=== PATIENT | male | born 1955 | race African-American/Black ===

== ENCOUNTER 2018-07-17 03:06 | Observation (INO) ==
[2018-07-17] MEDS ORDERED: Aspirin 325 MG TABLET PO ONE (03:15)
--- NOTE | 2018-07-17 03:20 | Emergency Department Note ---
Disposition Clinical Impression: Epigastric pain, Chest pain, Abnormal EKG, Elevated LFTs, Chronic alcohol abuse, Hypokalemia, Total bilirubin, elevated Disposition: Admitted As Inpatient Condition: Good Time of Disposition: 05:00 Abdominal Pain HPI - General Chief Complaint: ED Chest Pain Stated Complaint: chest pain Time Seen by Provider: 07/17/18 03:10 Source: patient, EMS Mode of arrival: EMS Limitations: no limitations Nursing Notes Reviewed: Yes Vital Signs Reviewed: Yes - History of Present Illness HPI Narrative: Patient is a 62-year-old male with past medical history of hepatitis C. He presents today via EMS due to concern for what he describes as chest pain. States that it woke him up out of sleep. He points to his epigastric area when he is talking about his chest pain. States that it feels a squeezing/sharp sensation. Woke him up around 1:30 or 2 AM, approximately one hour ago. Rates it at 10 out of 10. Denies any worsening with exertion, denies any other nausea, vomiting, sweating, fevers, diarrhea, any other lower abdominal pain. Denies any history of pancreatitis. He does admit to drinking alcohol daily, drinks a pint of liquor a day. Denies any previous cardiac history such as HI or stent. Did not take any aspirin or nitroglycerin prior to arrival. EMS stated that they tried to give the patient aspirin but he declined it due to concern for history of hepatitis C and he states that he thought he was not allowed to take it. Denies any history of any varices or any GI bleeding. Pain Scale: 8 - Related Data Home Medications Medication Instructions Recorded Confirmed RX: Lisinopril [Zestril] 10 mg PO DAILY 05/22/16 05/22/16 Allergies Allergy/AdvReac Type Severity Reaction Status Date / Time No Known Allergies Allergy Verified 05/22/16 11:30 All systems ED: reviewed and negative except as stated. Constitutional: Denies: fever Cardiovascular: Reports: chest pain Respiratory: Denies: cough, dyspnea, sputum production Gastrointestinal: Reports: abdominal pain. Denies: nausea, vomiting, diarrhea, constipation Abdominal Pain PMH - Past Medical History Medical history: Reports: cancer, hepatitis Psychiatric history: Reports: no psych history - Social History Smoking status: Current every day smoker Alcohol use: Reports: heavy Drug use: Reports: none Physical Exam - General Limitations: no limitations General appearance: alert, in no apparent distress - Head Head exam: atraumatic, normocephalic, normal inspection - Eye Eye exam: Present: normal appearance, PERRL, EOMI - ENT ENT exam: normal exam, normal oropharynx, mucous membranes moist - Neck Neck exam: Present: normal inspection, full ROM, trachea midline - Chest Chest inspection: Present: normal inspection, symmetric chest wall rise - Respiratory Respiratory exam: Present: normal lung sounds bilaterally - Cardiovascular Cardiovascular exam: Present: regular rate, normal rhythm, normal heart sounds - Abdominal Exam Abdominal exam: Present: tenderness (epigastric - moderate, reproduces patient's subjective pain). Absent: distention, guarding, rebound, rigidity, Elmore's sign, Rovsing's sign, tenderness at McBurney's Point - Extremities Exam Extremities exam: Present: normal inspection, full ROM. Absent: tenderness, pedal edema - Neurological Exam Neurological exam: Present: alert, oriented X3 - Psychiatric Psychiatric exam: Present: normal affect, normal mood - Skin Skin exam: Present: warm, dry, intact, normal color Course Course Narrative: Patient mildly hypertensive on presentation. Otherwise, the rest of the vitals within normal limits. Physical exam showed epigastric tenderness that reproduced the patient's subjective pain. He had no reproducible tenderness on chest exam, no rashes. Lungs were clear to auscultation, heart regular rate and rhythm. Due to alcohol history, there is more concerned for pancreatitis at this time. We will also consider ACS. We will obtain EKG, chest x-ray, basic blood work, troponin level, LFTs, lipase. Patient will be given medication for pain control and will be given aspirin. 04:18 chest x-ray negative for any acute cardio pulmonary process. Basic labs show mild hypokalemia. This was treated with oral potassium in the ED. Elevation in AST and inhaled T, mild which would be consistent with patient's chronic alcohol abuse. He also has a total bilirubin and direct bilirubin that are elevated. Patient was reevaluated and has no epigastric pain or right upper quadrant pain on repeat examination. Lipase is mildly elevated but does not meet criteria for acute pancreatitis. EKG was obtained and shows diffuse T wave inversions. There is no old EKG for comparison. Patient's pain appears to be controlled after aspirin and fentanyl. However, there is concern that this could still be ACS in nature as he has diffuse T-wave inversions. Currently concern for early pancreatitis, possible biliary colic, possible ACS. We will admit the patient for trending troponins and observation. Patient may require right upper quadrant ultrasound if he has return of pain for further assessment of elevated bilirubin level. Chest X-Ray 07/17/18 03:15 IMPRESSION: No acute process. D/ / Chase Wilson MD / Chase Wilson MD Interpreting Provider: Chase Wilson MD Vital Signs Temperature 97.7 F 07/17/18 03:09 Pulse Rate 57 07/17/18 03:09 Respiratory Rate 18 07/17/18 03:09 Blood Pressure 157/81 07/17/18 03:09 O2 Sat by Pulse Oximetry 99 07/17/18 03:09 Temperature 97.7 F 07/17/18 03:09 Pulse Rate 57 07/17/18 03:09 Respiratory Rate 18 07/17/18 03:09 Blood Pressure 157/81 07/17/18 03:09 O2 Sat by Pulse Oximetry 99 07/17/18 03:09 Oxygen Delivery Oxygen Delivery Room Air Abdominal Pain - MDM Narrative Medical decision making narrative: Patient mildly hypertensive on presentation. Otherwise, the rest of the vitals within normal limits. Physical exam showed epigastric tenderness that reproduced the patient's subjective pain. He had no reproducible tenderness on chest exam, no rashes. Lungs were clear to auscultation, heart regular rate and rhythm. Due to alcohol history, there is more concerned for pancreatitis at this time. We will also consider ACS. We will obtain EKG, chest x-ray, basic blood work, troponin level, LFTs, lipase. Patient will be given medication for pain control and will be given aspirin. 04:18 chest x-ray negative for any acute cardio pulmonary process. Basic labs show mild hypokalemia. This was treated with oral potassium in the ED. Elevation in AST and inhaled T, mild which would be consistent with patient's chronic alcohol abuse. He also has a total bilirubin and direct bilirubin that are elevated. Patient was reevaluated and has no epigastric pain or right upper quadrant pain on repeat examination. Lipase is mildly elevated but does not meet criteria for acute pancreatitis. EKG was obtained and shows diffuse T wave inversions. There is no old EKG for comparison. Patient's pain appears to be controlled after aspirin and fentanyl. However, there is concern that this could still be ACS in nature as he has diffuse T-wave inversions. Currently concern for early pancreatitis, possible biliary colic, possible ACS. We will admit the patient for trending troponins and observation. Patient may require right upper quadrant ultrasound if he has return of pain for further assessment of elevated bilirubin level. - Medical Records Medical records reviewed: Yes I reviewed the patient's medical records. - Lab Data Lab results reviewed: Yes I reviewed the patient's lab results. Result diagrams: 07/17/18 03:20 07/17/18 03:20 Lab Results 07/17/18 07/17/18 07/17/18 Range/Units 03:20 03:20 03:20 WBC 7.5 (4.3-11.1) K/mcL RBC 4.13 L (4.19-5.50) M/mcL Hgb 14.4 (12.9-16.9) g/dL Hct 41.7 (37.5-50.1) % MCV 101.0 H (83.0-100.0) fL MCH 34.9 H (28.0-33.3) pg MCHC 34.5 (31.6-35.5) g/dL RDW 12.1 (11.5-14.5) % Plt Count 146 (140-400) K/mcL MPV 10.2 (9.4-12.4) fL Immature Gran % 0.3 (0-4) % Seg Neutrophils % 64.9 % Lymphocytes % 22.5 % Monocytes % 10.4 % Eosinophils % 1.5 % Basophils % 0.4 % Neutrophils # 4.9 (1.6-8.9) K/mcL Lymphocytes # 1.7 (0.6-4.6) K/mcL Monocytes # 0.8 (0.0-1.3) K/mcL Eosinophils # 0.1 (0.0-0.6) K/mcL Basophils # 0.0 (0.0-0.2) K/mcL Sodium 139 (136-145) mEq/L Potassium 3.3 L (3.5-5.1) mEq/L Chloride 106 (98-107) mEq/L Carbon Dioxide 24 (23-29) mEq/L BUN 8 (8-23) mg/dL Creatinine 0.78 (0.70-1.30) mg/dL Est GFR ( Amer) > 60 (> 60) Est GFR (Non-Af Amer) > 60 (> 60) BUN/Creatinine Ratio 10 (6-26) Glucose 110 H (70-105) mg/dL Calculated Osmolality 287 (280-300) Calcium 8.8 (8.6-10.3) mg/dL Total Bilirubin 1.8 H (0.3-1.0) mg/dL Direct Bilirubin 1.3 H (0.0-0.2) mg/dL Indirect Bilirubin 0.5 (0.0-1.2) mg/dL AST 94 H (13-39) Units/L ALT 55 H (7-52) Units/L Alkaline Phosphatase 104 (34-104) Units/L Troponin I < 0.03 (< 0.04) ng/mL Serum Total Protein 6.8 (6.4-8.9) g/dL Albumin 3.4 L (3.5-5.7) g/dL Globulin 3.4 (2.4-3.5) g/dL Albumin/Globulin Ratio 1.0 L (1.1-2.2) Lipase 87 H (11-82) Units/L - Radiology Data Radiology results reviewed: Yes I reviewed the patient's radiology results. Chest X-Ray 07/17/18 03:15 IMPRESSION: No acute process. D/ / Chase Wilson MD / Chase Wilson MD Interpreting Provider: Chase Wilson MD - EKG Data EKG attestation: Yes I reviewed and interpreted this EKG. EKG results narrative: 07/17/2018 at 03:50. Sinus rhythm. Rate 64. [place] 156. QRS 97. QTC 439. Left axis deviation. T-wave inversions in 1, 2, 3, aVF, V4 through the 6. No acute ST elevation. No ST depression. No previous EKG for comparison. No STEMI. S.B.A.R. - Lino Situation: Demographics, MOA Background: Presenting Complaint, Relevant PMH, Meds, & Allergies Assessment: Vital Signs, Course and respsone to treatment, Exam Concerns, Patient/Family Expectation, Pertinant Lab Results Recommendation: Barrier(s) to disposition, Recommendation based on pending studies, treatments, or consults S.B.A.Heri. Report Given to: Dr. Gomes Attestation Statement - Attestation Attestation: Dr. Graham note: Patient seen in conjunction with resident Dr. Singh Foster; please see his charting for complete documentation. I spent [id number] time with the patient and agree with the patient's treatment and disposition. Pain improved. Diffuse T-wave inversion noted on EKG. No diaphoresis or chest pain at this time. Describes his pain as being in the upper abdomen epigastric area of toribio den onset within 2 hours of ER arrival. They resolved but due to his questionable cardiac versus upper abdominal presentation with the EKG abnormality will be admitted for observation and additional testing. EKG and blood work reviewed
[2018-07-17] MEDS ORDERED: *HR* FentaNYL (PF) 100 MCG/2 ML VIAL IVP ONE (03:22)
[2018-07-17 03:56] LABS: Basophils % 0.4 %; Eosinophils # 0.1 K/mcL (0.0-0.6); Eosinophils % 1.5 %; Hematocrit 41.7 % (37.5-50.1); Hemoglobin 14.4 g/dL (12.9-16.9); Immature Granulocytes % 0.3 % (0-4); Lymphocytes # 1.7 K/mcL (0.6-4.6); Lymphocytes % 22.5 %; Mean Corpuscular HGB Conc 34.5 g/dL (31.6-35.5); Mean Corpuscular Hemoglobin 34.9 pg (28.0-33.3); Mean Platelet Volume 10.2 fL (9.4-12.4); Monocytes # 0.8 K/mcL (0.0-1.3); Monocytes % 10.4 %; Neutrophils # 4.9 K/mcL (1.6-8.9); Platelet Count 146 K/mcL (140-400); Red Blood Count 4.13 M/mcL (4.19-5.50); Red Cell Distribution Width 12.1 % (11.5-14.5); Segmented Neutrophils % 64.9 %
[2018-07-17 04:06] LABS: Alanine Aminotransferase 55 Units/L (7-52); Albumin 3.4 g/dL (3.5-5.7); Alkaline Phosphatase 104 Units/L (34-104); Aspartate Amino Transferase 94 Units/L (13-39); BUN/Creatinine Ratio 10 (6-26); Bilirubin,Direct 1.3 mg/dL (0.0-0.2); Bilirubin,Indirect 0.5 mg/dL (0.0-1.2); Bilirubin,Total 1.8 mg/dL (0.3-1.0); Blood Urea Nitrogen 8 mg/dL (8-23); Calcium 8.8 mg/dL (8.6-10.3); Carbon Dioxide 24 mEq/L (23-29); Chloride 106 mEq/L (98-107); Globulin 3.4 g/dL (2.4-3.5); Glucose 110 mg/dL (70-105); Lipase 87 Units/L (11-82); Osmolality,Calculated 287 (280-300); Potassium 3.3 mEq/L (3.5-5.1); Sodium 139 mEq/L (136-145); Total Protein 6.8 g/dL (6.4-8.9); eGFR For Non-African Americans > 60 (> 60)
[2018-07-17] MEDS ORDERED: Potassium Chloride Elixir 20 MEQ/15 ML UDC PO ONE (04:16)
[2018-07-17 06:25] LABS: Bilirubin,Urine Negative (Negative); Blood,Urine Negative (Negative); Clarity,Urine Turbid (Clear); Color,Urine Dark Yellow (Yellow); Glucose,Urine (UA) Normal (Normal); Ketones,Urine Negative (Negative); Leukocyte Esterase,Urine Negative (Negative); Nitrite,Urine Negative (Negative); PH,Urine 7.5 pH Units (5.0-8.0); Protein,Urine Negative (Neg-Trace); Specific Gravity,Urine 1.017 (1.010-1.025); Urobilinogen,Urine >=8.0 mg/dL (Normal)
[2018-07-17 06:27] LABS: Bacteria,Urine None Seen per hpf (None-Few); Hyaline Casts,Urine None Seen per lpf (None-Few); RBC,Urine 0-3 per hpf (0-3); Squamous Epithelial Cell,Urine Many per lpf (None-Few); WBC,Urine 0-3 per hpf (0-3)
[2018-07-17] MEDS ORDERED: Naloxone 0.4 MG/ML INJ IVP PRN (08:43)
--- NOTE | 2018-07-17 11:29 | Internal Med History&Physical ---
Date of Encounter: 07/17/18 Time of Encounter: 09:15 Internal Medicine - H&P: HPI Chief complaint: Epigastric pain Admitted From: Emergency Dept Plans for Post Hospital Care: Home History of present illness: Mr. Dowell is a 62 year old male patient with a history of hepatitis C, chronic alcohol abuse, colon cancer who presented to the ER with complaints of pain in his upper abdomen radiating across from his left to the right side. He reports that it was a cramping pain and was 8 out of 10 in severe. Pain began to resolve as he came to the ER. He did take Tums before coming in and he did seem to help with his pain. He denies any fevers or chills. He did not have any nausea or vomiting. No hematemesis or melena. He denies any shortness of breath. No dizziness or lightheadedness. Past Med Surg Social Fam HX - Past Medical History Attestation: Yes The following information was validated with the patient. Source: patient Medical history: cancer, hepatitis Additional medical history: colon cancer Psychiatric history: no psych history - Past Surgical History Surgical History: colectomy Additional surgical history: testicle removed. - Social History Smoking Status: Current every day smoker Packs per day: 1 Smokeless Tobacco Status: No Alcohol use: heavy Drug use: none - Additional Family History Additional family history: Family history reviewed and found to be noncontributory at this time Internal Medicine - H&P: Meds Lisinopril [Zestril] 10 mg PO DAILY 05/22/16 [History] Allergy/AdvReac Type Severity Reaction Status Date / Time No Known Allergies Allergy Verified 05/22/16 11:30 All Systems PM: A 10-system review of systems was performed and is negative for pertinent findings except as documented above in the HPI. - Constitutional Constitutional: no chills, no fever(s), no night sweats - EENT Eyes: no change in vision, no discharge, no pain, no photophobia Ears: no ear discharge, no ear pain, no tinnitus Nose, mouth and throat: no dysphagia, no nasal discharge, no neck pain, no sore throat - Cardiovascular Cardiovascular ROS IM: no chest pain, no diaphoresis, no dyspnea, no lightheadedness, no palpitations, no syncope - Respiratory Respiratory: no cough, no dyspnea, no wheezing, no excessive phlegm production - Gastrointestinal Gastrointestinal: abdominal pain - Musculoskeletal Musculoskeletal ROS IM: no numbness, no tingling - Integumentary Integumentary IM: no rash, no unusual bruising - Neurological Neurological ROS: no confusion, no convulsions, no focal weakness, no numbness, no tingling, no tremor(s) - Hematologic/Lymphatic Hematologic/Lymphatic: no easy bruising - Constitutional Vitals: Temp Pulse Resp BP Pulse Ox 98.7 F 67 16 148/80 95 07/17/18 06:05 07/17/18 06:05 07/17/18 06:05 07/17/18 06:05 07/17/18 06:05 General appearance: Present: cooperative, A&O X 3, pleasant, answers questions appropriately Exam: General: Patient is alert, no acute distress, oriented x 3 Head: atraumatic, normocephalic, ENT: Mucous membranes moist Eye: normal appearance, PERRL, no scleral icterus, no conjunctival injection Neck: normal inspection, trachea midline, full ROM, no carotid bruits Chest: normal inspection, symmetric chest rise Respiratory: Prolonged expiratory phase, mild end expiratory wheezing Cardiovascular: Regular rate and rhythm. s1 and s2 normal No clicks, rubs, gallops, or murmurs. No pedal edema Abdomen: Abdomen is soft, nontender. Bowel sounds are present Musculoskeletal: Spontaneously moving all extremities Skin: warm, dry, intact. Neuro: Alert oriented x 3 normal cranial nerves, no focal deficits Psych: Patient's affect is normal Internal Med - H&P Results - Labs CBC & Chem 7: 07/17/18 03:20 07/17/18 03:20 Labs: Short CBC 07/17/18 Range/Units 03:20 WBC 7.5 (4.3-11.1) K/mcL Hgb 14.4 (12.9-16.9) g/dL Hct 41.7 (37.5-50.1) % Plt Count 146 (140-400) K/mcL Neutrophils # 4.9 (1.6-8.9) K/mcL BMP 07/17/18 03:20 Sodium 139 Potassium 3.3 L Chloride 106 Carbon Dioxide 24 BUN 8 Creatinine 0.78 Glucose 110 H Calcium 8.8 Cardiac Enzymes 07/17/18 Range/Units 03:20 Troponin I < 0.03 (< 0.04) ng/mL Liver Function 07/17/18 Range/Units 03:20 Total Bilirubin 1.8 H (0.3-1.0) mg/dL Direct Bilirubin 1.3 H (0.0-0.2) mg/dL AST 94 H (13-39) Units/L ALT 55 H (7-52) Units/L Alkaline Phosphatase 104 (34-104) Units/L Albumin 3.4 L (3.5-5.7) g/dL Urine 07/17/18 Range/Units 06:11 Urine Color Dark Yellow (Yellow) Urine Clarity Turbid A (Clear) Urine pH 7.5 (5.0-8.0) pH Units Ur Specific [place] 1.017 (1.010-1.025) Urine Protein Negative (Neg-Trace) mg/dL Urine Glucose (UA) Normal (Normal) mg/dL - EKG Data -: EKG Interpreted by Myself EKG shows normal: sinus rhythm - EKG Data EKG comments: 07/17/18 11:39 T-wave inversion in lateral leads; possibly secondary repolarization abnormality - Impressions ITS Impressions Chest X-Ray 07/17/18 03:15 IMPRESSION: No acute process. D/ / Chase Wilson MD / Chase Wilson MD Interpreting Provider: Chase Wilson MD - Assessment and Plan (1) Epigastric pain Current Visit: Yes Status: Acute Assessment and plan: Patient with acute epigastric pain. Lipase slightly elevated at 87. We will check amylase. May be early pancreatitis. We will obtain liver ultrasound. Patient does have a history of hepatitis C. AST is mildly elevated. Alkaline phosphatase is normal. Supportive care. Clear liquids only. Pain control. IV fluids. (2) Abnormal EKG Current Visit: Yes Status: Acute Assessment and plan: EKG shows T-wave inversion in lateral leads. Could be secondary repolarization abnormality. However no prior EKGs to compare. We will check troponins. Get echocardiogram. Monitor with telemetry. (3) Chronic alcohol abuse Current Visit: Yes Status: Chronic Assessment and plan: History of chronic alcohol use. Will monitor for withdrawal symptoms. (4) Hypokalemia Current Visit: Yes Status: Acute Assessment and plan: Potassium 3.3 this morning. He did receive oral potassium. Will recheck levels in the morning. - Time Spent With Patient Total time spent is greater than 50% in coordination of care (as documented) at patient's floor/unit and/or counseling patient:
[2018-07-17] MEDS ORDERED: Ringers Solution, Lactated 1,000 ML ONE (12:04)
[2018-07-17] MEDS: Ringers Solution, Lactated 1,000 ML IVC SCH (14:18)
[2018-07-17] MEDS ORDERED: Isovue-370 500 ML BOTTLE IVP ONE (17:38)
[2018-07-18] MEDS: Ringers Solution, Lactated 1,000 ML IVC SCH ×2 (02:34→15:53)
--- NOTE | 2018-07-18 06:17 | Electrocardiograph Report ---
[place] [facility] Test Date: 2018-07-17 Pat Name: Timothy Dowell Department: EXAM17 Room: 2S4 Gender: M S[employer] D[employer] Feeder: : 1955 Requested By: Singh Foster Order Number: [id number] Reading MD: Blake Nur Measurements Intervals [place] Rate: 64 P: 44 DC: 156 QRS: 40 QRSD: 97 T: 249 QT: 425 QTc: 439 Interpretive Statements Sinus rhythm Non specific ST-T changes. Electronically Signed On 07-18-2018 6:16:22 EDT by Blake Nur
[2018-07-18 07:06] LABS: Basophils % 0.7 %; Eosinophils # 0.1 K/mcL (0.0-0.6); Eosinophils % 2.3 %; Hematocrit 43.3 % (37.5-50.1); Hemoglobin 14.9 g/dL (12.9-16.9); Immature Granulocytes % 0.2 % (0-4); Lymphocytes # 1.6 K/mcL (0.6-4.6); Lymphocytes % 26.2 %; Mean Corpuscular HGB Conc 34.4 g/dL (31.6-35.5); Mean Corpuscular Hemoglobin 35.2 pg (28.0-33.3); Mean Corpuscular Volume 102.4 fL (83.0-100.0); Mean Platelet Volume 10.1 fL (9.4-12.4); Monocytes # 0.6 K/mcL (0.0-1.3); Monocytes % 9.9 %; Neutrophils # 3.7 K/mcL (1.6-8.9); Platelet Count 126 K/mcL (140-400); Red Blood Count 4.23 M/mcL (4.19-5.50); Red Cell Distribution Width 11.9 % (11.5-14.5); Segmented Neutrophils % 60.7 %
[2018-07-18] MEDS ORDERED: Gadolinium Contrast Agent (WT Based) IV PRN (08:39)
[2018-07-18 09:34] LABS: Alanine Aminotransferase 42 Units/L (7-52); Albumin 3.3 g/dL (3.5-5.7); Alkaline Phosphatase 111 Units/L (34-104); Aspartate Amino Transferase 50 Units/L (13-39); BUN/Creatinine Ratio 9 (6-26); Bilirubin,Total 2.1 mg/dL (0.3-1.0); Blood Urea Nitrogen 7 mg/dL (8-23); Carbon Dioxide 26 mEq/L (23-29); Chloride 103 mEq/L (98-107); Glucose 103 mg/dL (70-105); Osmolality,Calculated 280 (280-300); Potassium 4.2 mEq/L (3.5-5.1); Sodium 136 mEq/L (136-145); Total Protein 6.5 g/dL (6.4-8.9); eGFR For Non-African Americans > 60 (> 60)
[2018-07-18 09:35] LABS: Amylase 48 Units/L (29-103); Chol/HDL Ratio 3.9 (0-4.9); Cholesterol 131 mg/dL (< 200); Globulin 3.2 g/dL (2.4-3.5); HDL Cholesterol 34 mg/dL (40-59); LDL Cholesterol,Calculated 80 mg/dL (0-99); Lipase 37 Units/L (11-82); Triglycerides 86 mg/dL (< 150)
--- NOTE | 2018-07-18 16:10 | Internal Med Progress Note ---
Hospitalist Progress Note - Encounter Date of Encounter: 07/18/18 Time of Encounter: 12:30 - Subjective Interval History: H&P reviewed. Patient with history of hepatitis C, chronic alcohol abuse, was admitted due to epigastric pain. States that his pain is now resolved. Denies any fever/chills or nausea/vomiting. CT scan done overnight however showed peripheral intrahepatic biliary ductal dilatation in the left hepatic lobe as well as associated linear and chunky calcifications in segment 2. - Exam Vitals: Temp Pulse Resp BP Pulse Ox 98.3 F 59 16 160/87 95 07/18/18 11:20 07/18/18 11:20 07/18/18 11:20 07/18/18 11:20 07/18/18 11:20 Exam: General: Patient is alert, no acute distress, oriented x 3 Eye: PERRL, no scleral icterus Respiratory: CTA bilaterally Cardiovascular: Regular rate and rhythm. s1 and s2 normal No clicks, rubs, gallops, or murmurs. No pedal edema Abdomen: Abdomen is soft, nontender. Bowel sounds are present. Unable to appre ciate organomegaly Neuro: non-focal - Assessment and Plan (1) Epigastric pain Current Visit: Yes Status: Acute Assessment and Plan: Patient with acute epigastric pain and CT demonstrating peripheral intrahepatic biliary dilatation ?cholangiocarcinoma LFT downtrending today except for bilirubin of 2.1 pain has now resolved however MRI liver, advance diet as tolerated thereafter (2) Abnormal EKG Current Visit: Yes Status: Acute Assessment and Plan: EKG shows T-wave inversion in lateral leads, likely due to repolarization abnormality. Echo unremarkable (3) Chronic alcohol abuse Current Visit: Yes Status: Chronic Assessment and Plan: History of chronic alcohol use. No signs and symptoms of alcohol withdrawal (4) Hypokalemia Current Visit: Yes Status: Acute Assessment and Plan: Normalized DVT Prophylaxis: EPCD - Time Spent with Patient Total time spent is greater than 50% in coordination of care (as documented) at patient's floor/unit and/or counseling patient: 25 - 35 minutes Plan of Care Discussed with: patient (Discussed with patient's significant other) Internal Medicine: Result - Labs CBC & Chem 7: 07/18/18 06:50 07/18/18 06:50 Labs: Short CBC 07/18/18 Range/Units 06:50 WBC 6.2 (4.3-11.1) K/mcL Hgb 14.9 (12.9-16.9) g/dL Hct 43.3 (37.5-50.1) % Plt Count 126 L (140-400) K/mcL Neutrophils # 3.7 (1.6-8.9) K/mcL BMP 07/18/18 06:50 Sodium 136 Potassium 4.2 Chloride 103 Carbon Dioxide 26 BUN 7 L Creatinine 0.82 Glucose 103 Calcium 9.0 Cardiac Enzymes 07/17/18 Range/Units 19:52 Troponin I < 0.03 (< 0.04) ng/mL Liver Function 07/18/18 Range/Units 06:50 Total Bilirubin 2.1 H (0.3-1.0) mg/dL AST 50 H (13-39) Units/L ALT 42 (7-52) Units/L Alkaline Phosphatase 111 H (34-104) Units/L Albumin 3.3 L (3.5-5.7) g/dL - Impressions Impressions Liver Ultrasound 07/17/18 11:00 IMPRESSION: 1. Hepatic steatosis. Echogenic foci in the left hepatic lobe which may represent portal venous gas or pneumobilia. Further evaluation with CT abdomen and pelvis is recommended. 2. Gallbladder sludge and mild gallbladder wall thickening and pericholecystic fluid. If there is clinical concern for acute cholecystitis, further evaluation with nuclear medicine HIDA scan may be performed. 3. Prominent appearance of the pancreas with no focal abnormality noted. This can also be assessed on CT abdomen and pelvis. D/ / 07/17/2018 12:36:06 Joann Rutledge MD / jl Interpreting Provider: Joann Rutledge MD Echocardiogram 07/17/18 11:24 Impressions: LVEF 60-65%. Normal LV chamber size, wall thickness and function. Normal right ventricular structure and function. No significant valvular dysfunction. Mild pulmonary hypertension. Left Ventricular Wall Motion: Rest Echo Findings All wall segments showed normal motion. Findings: Study Quality * Technically adequate exam. ECG Findings * Sinus bradycardia. Left Ventricle * LVEF 60-65%. * Normal LV chamber size, wall thickness and systolic function. * Normal left ventricular diastolic function. Right Ventricle * Normal right ventricular structure and function. Left Atrium * Normal left atrial size. Right Atrium * Normal right atrial size. Interatrial Septum * Interatrial septum not well evaluated. * No evidence of PFO by color Doppler. Aortic Valve * Trileaflet aortic valve with normal function. * No aortic stenosis. * No aortic regurgitation. Mitral Valve * Normal mitral valve structure. * No mitral stenosis. * Trace mitral regurgitation. Tricuspid Valve * Normal tricuspid valve structure. * No tricuspid stenosis. * Trace tricuspid regurgitation. * Estimated RVSP is 43 mmHg. * Estimated RA pressure is 8 mmHg. * Mild pulmonary hypertension. Pulmonic Valve * Pulmonic valve is not well visualized. * No pulmonic stenosis. * No pulmonic regurgitation. Aorta * Normally sized aortic root. Pericardium * The pericardium appears normal. IVC * The IVC is not dilated. * < 50% respiratory change. Abdomen/Pelvis CT 07/17/18 17:38 IMPRESSION: 1. Peripheral intrahepatic biliary ductal dilatation in the left hepatic lobe. There are associated linear and chunky calcifications in segment 2. No appreciated mass within the liver parenchyma. Differential considerations would include peripheral cholangiocarcinoma. Other considerations would include chronic changes from a prior history of cholangitis or even portal vein calcification if there has been a prior history of thrombophlebitis. Recommend a follow-up MRI of the liver with and without contrast for more sensitive evaluation using Eovist. 2. Bulky lymphadenopathy in the ru hepatis and mild fluid around the gallbladder which is felt to be reactive. No evidence of acute cholecystitis. 3. Diffuse bladder mucosal thickening with a nodular prostate. This may represent chronic bladder outlet obstruction. Recommend correlation with urology history. D/ / Luis Antonio Recinos MD / Luis Antonio Recinos MD Interpreting Provider: Luis Antonio Recinos MD Consult Discharge Plan - Plan Referrals: NONE,PCP [Primary Care Provider] -
[2018-07-18] MEDS ORDERED: GADOXETATE DISODIUM 2.5 MMOL/10 ML VIAL IVP ONE (17:32)
[2018-07-19 05:36] LABS: Hematocrit 40.1 % (37.5-50.1); Hemoglobin 14.3 g/dL (12.9-16.9); Mean Corpuscular HGB Conc 35.7 g/dL (31.6-35.5); Mean Corpuscular Hemoglobin 35.7 pg (28.0-33.3); Mean Platelet Volume 10.2 fL (9.4-12.4); Platelet Count 115 K/mcL (140-400); Red Blood Count 4.01 M/mcL (4.19-5.50); Red Cell Distribution Width 11.8 % (11.5-14.5)
[2018-07-19 05:57] LABS: Alanine Aminotransferase 34 Units/L (7-52); Albumin 3.2 g/dL (3.5-5.7); Alkaline Phosphatase 104 Units/L (34-104); Aspartate Amino Transferase 39 Units/L (13-39); BUN/Creatinine Ratio 11 (6-26); Bilirubin,Total 0.8 mg/dL (0.3-1.0); Blood Urea Nitrogen 10 mg/dL (8-23); Calcium 8.9 mg/dL (8.6-10.3); Carbon Dioxide 28 mEq/L (23-29); Chloride 103 mEq/L (98-107); Globulin 3.1 g/dL (2.4-3.5); Glucose 108 mg/dL (70-105); Osmolality,Calculated 284 (280-300); Potassium 4.2 mEq/L (3.5-5.1); Sodium 137 mEq/L (136-145); Total Protein 6.3 g/dL (6.4-8.9); eGFR For Non-African Americans > 60 (> 60)
[2018-07-19 07:13] VITALS: BP 146/80
--- NOTE | 2018-07-19 10:14 | Discharge Summary ---
- NOTES TO OUTPATIENT PROVIDER Notes to Outpatient Provider: Follow up with GI as outpatient. Date of Encounter: 07/19/18 Time of Encounter: 07:30 - Discharge Diagnosis (1) Epigastric pain Priority: Primary Status: Acute (2) Abnormal EKG Priority: Secondary Status: Acute (3) Chronic alcohol abuse Priority: Secondary Status: Chronic (4) Hypokalemia Priority: Secondary Status: Acute Hospital course: Mr. Dowell is a 62 year old male with history of hepatitis C, chronic alcohol abuse, colon cancer, was admitted for epigastric pain and mild transaminitis. CT showed peripheral intrahepatic biliary ductal dilatation associated with linear and chunky calcification in segment 2 ?cholangiocarcinoma, but MRI did not replicate that CT finding with the exception of mild peripheral biliary dilatation. ?passed stone. LFT normalized with supportive measure and tolerated diet well. He will be discharged with close GI follow up as outpatient. Patient also had echocardiogram in view of nonspecific T wave changes in the lateral leads associated with epigastric pain which was essentially unremarkable. Discharge discussed with: patient, family, nurse - Time Spent with Patient Total time spent providing and/or coordinating discharge services: 27 mins - Discharge Medications Prescriptions: Continue No Known Home Drugs 1 each .ROUTE AD each Home Medications: No Known Home Drugs 07/17/18 [History] Allergies/Adverse Reactions: Allergy/AdvReac Type Severity Reaction Status Date / Time No Known Allergies Allergy Verified 07/17/18 20:27 Date of admission: 07/17/18 05:05 Primary care physician: PCP NONE Consults: 07/17/18 06:32 Consult to Dental Instructor [CONS] Routine Reason for SW Consult: pts needs SS consult for financial reasons. - Constitutional Vitals: Temp Pulse Resp BP Pulse Ox 98.4 F 79 18 146/80 98 07/19/18 07:10 07/19/18 07:10 07/19/18 07:10 07/19/18 07:10 07/19/18 07:10 General appearance: Present: cooperative, A&O X 3, pleasant, answers questions appropriately Exam: General: Patient is alert, no acute distress, oriented x 3 Eye: PERRL, no scleral icterus Respiratory: CTA bilaterally Cardiovascular: Regular rate and rhythm. s1 and s2 normal No clicks, rubs, gallops, or murmurs. No pedal edema Abdomen: Abdomen is soft, nontender. Bowel sounds are present. Unable to appreciate organomegaly Neuro: non-focal - Patient Status Disposition: Home, Self-Care Condition: Good Functional capacity at discharge: independent ambulation Overall status at discharge: patient is progressing back to baseline - Discharge Instructions Follow Up With: NONE,PCP [Primary Care Provider] - Daniel Barone MD [Partnered Physician] - Additional Instructions: Follow with GI as outpatient - Diet and Activity Activity: resume usual activities as tolerated Diet: regular diet
== END 2018-07-19 10:50 | disposition home or self-care (01) ==
LOC: EMEROOARM 03:06 → 2SOUTHHOLD 03:06 → SUATTDRO 05:05 → 2SOUTHHOLD 06:10
PROVIDERS: ADMIT Family Medicine; ATTEND Internal Medicine

== ENCOUNTER 2020-03-17 15:32 | Observation (INO) ==
[2020-03-17] MEDS ORDERED: Vancomycin 1,250 MG/262.5 ML IV.SOLN IVPB ONE (15:51)
[2020-03-17] MEDS ORDERED: *HR* FentaNYL (PF) 100 MCG/2 ML VIAL IVP ONE (16:03)
[2020-03-17 16:12] LABS: Basophils % 0.7 %; Eosinophils # 0.2 K/mcL (0.0-0.6); Eosinophils % 4.2 %; Hematocrit 41.9 % (37.5-50.1); Immature Granulocytes % 0.3 % (0-4); Lymphocytes # 1.7 K/mcL (0.6-4.6); Lymphocytes % 29.1 %; Mean Corpuscular HGB Conc 33.4 g/dL (31.6-35.5); Mean Corpuscular Hemoglobin 35.5 pg (28.0-33.3); Mean Corpuscular Volume 106.3 fL (83.0-100.0); Mean Platelet Volume 9.6 fL (9.4-12.4); Monocytes # 0.7 K/mcL (0.0-1.3); Monocytes % 12.9 %; Platelet Count 146 K/mcL (140-400); Red Blood Count 3.94 M/mcL (4.19-5.50); Red Cell Distribution Width 12.8 % (11.5-14.5); Segmented Neutrophils % 52.8 %; White Blood Count 5.7 K/mcL (4.3-11.1)
[2020-03-17 16:33] LABS: BUN/Creatinine Ratio 12 (6-26); Blood Urea Nitrogen 9 mg/dL (8-23); Calcium 8.5 mg/dL (8.6-10.3); Carbon Dioxide 26 mEq/L (23-29); Chloride 106 mEq/L (98-107); Ethanol < 10 mg/dL (Less than 10); Glucose 171 mg/dL (70-105); Osmolality,Calculated 285 (280-300); Potassium 3.5 mEq/L (3.5-5.1); Sodium 136 mEq/L (136-145); eGFR For African Americans > 60 (> 60); eGFR For Non-African Americans > 60 (> 60)
[2020-03-17 17:26] LABS: Alanine Aminotransferase 30 Units/L (7-52); Albumin 3.2 g/dL (3.5-5.7); Albumin/Globulin Ratio 0.7 (1.1-2.2); Alkaline Phosphatase 97 Units/L (34-104); Aspartate Amino Transferase 55 Units/L (13-39); Bilirubin,Direct 0.8 mg/dL (0.0-0.2); Bilirubin,Indirect 1.1 mg/dL (0.0-1.0); Bilirubin,Total 1.9 mg/dL (0.3-1.0); Globulin 4.3 g/dL (2.4-3.5); Total Protein 7.5 g/dL (6.4-8.9)
[2020-03-17] MEDS ORDERED: *HR* LORazepam 2 MG/ML VIAL IVP PRN ×3 (17:41)
[2020-03-17] MEDS ORDERED: Naloxone 0.4 MG/ML INJ IVP PRN (17:43)
[2020-03-17] MEDS ORDERED: Ondansetron 4 MG/2 ML VIAL IVP PRN (17:43)
[2020-03-17] MEDS ORDERED: Ibuprofen 400 MG TABLET PO PRN (17:43)
[2020-03-17] MEDS ORDERED: *HR* HYDROcodone/Acet 5/325 mg TABLET PO PRN (17:43)
[2020-03-17 18:22] LABS: Hepatitis B Surface Antigen Nonreactive (Nonreactive)
[2020-03-17 18:52] LABS: Hepatitis B Core IgM Nonreactive (Nonreactive)
[2020-03-17 18:53] LABS: Hepatitis A Antibody IgM Nonreactive (Nonreactive)
[2020-03-17 20:51] LABS: Hepatitis C Virus Antibody Reactive (Nonreactive)
[2020-03-18] MEDS: Piperacillin/Tazobactam 3.375 GM in 0.9 % Sodium Chloride Mini Bag 100 ML IVPB SCH ×3 (00:11→17:35)
[2020-03-18] MEDS: *HR* Heparin 5,000 UNIT/ML VIAL SQ SCH ×2 (00:11→04:25)
[2020-03-18] MEDS: Vancomycin 1,250 MG/262.5 ML IV.SOLN IVPB SCH ×2 (04:24→17:36)
[2020-03-18 05:26] LABS: Hematocrit 37.6 % (37.5-50.1); Hemoglobin 12.6 g/dL (12.9-16.9); Mean Corpuscular HGB Conc 33.5 g/dL (31.6-35.5); Mean Corpuscular Hemoglobin 35.8 pg (28.0-33.3); Mean Corpuscular Volume 106.8 fL (83.0-100.0); Mean Platelet Volume 9.9 fL (9.4-12.4); Platelet Count 131 K/mcL (140-400); Red Blood Count 3.52 M/mcL (4.19-5.50); Red Cell Distribution Width 12.8 % (11.5-14.5); White Blood Count 4.2 K/mcL (4.3-11.1)
[2020-03-18 05:52] LABS: BUN/Creatinine Ratio 10 (6-26); Blood Urea Nitrogen 9 mg/dL (8-23); Calcium 8.1 mg/dL (8.6-10.3); Carbon Dioxide 25 mEq/L (23-29); Chloride 108 mEq/L (98-107); Chol/HDL Ratio 3.3 (0-4.9); Cholesterol 106 mg/dL (< 200); Glucose 92 mg/dL (70-105); HDL Cholesterol 32 mg/dL (40-59); LDL Cholesterol,Calculated 65 mg/dL (< 100); Magnesium 1.7 mg/dL (1.6-2.6); Osmolality,Calculated 282 (280-300); Phosphorous 3.7 mg/dL (2.7-4.5); Potassium 3.8 mEq/L (3.5-5.1); Sodium 137 mEq/L (136-145); Triglycerides 47 mg/dL (< 150); eGFR For African Americans > 60 (> 60); eGFR For Non-African Americans > 60 (> 60)
[2020-03-18] MEDS: Thiamine (B-1) 100 MG TABLET PO SCH (08:26)
[2020-03-18] MEDS: Vitamin B Complex/Vit C/Vit E 1 EACH TABLET PO SCH (08:26)
[2020-03-18] MEDS: Folic Acid 1 MG TABLET PO SCH (08:26)
[2020-03-18 12:47] LABS: Estimated Average Glucose 88 mg/dl
[2020-03-18] MEDS: Silvasorb 44.4 ML TUBE TP SCH (17:35)
[2020-03-19] MEDS: Piperacillin/Tazobactam 3.375 GM in 0.9 % Sodium Chloride Mini Bag 100 ML IVPB SCH ×3 (01:18→16:18)
[2020-03-19 05:57] LABS: Hematocrit 37.8 % (37.5-50.1); Hemoglobin 12.9 g/dL (12.9-16.9); Mean Corpuscular HGB Conc 34.1 g/dL (31.6-35.5); Mean Corpuscular Hemoglobin 36.9 pg (28.0-33.3); Mean Platelet Volume 9.5 fL (9.4-12.4); Platelet Count 119 K/mcL (140-400); Red Cell Distribution Width 12.5 % (11.5-14.5); White Blood Count 4.4 K/mcL (4.3-11.1)
[2020-03-19 06:23] LABS: BUN/Creatinine Ratio 13 (6-26); Blood Urea Nitrogen 11 mg/dL (8-23); Calcium 8.3 mg/dL (8.6-10.3); Carbon Dioxide 24 mEq/L (23-29); Chloride 108 mEq/L (98-107); Glucose 90 mg/dL (70-105); Osmolality,Calculated 283 (280-300); Potassium 3.9 mEq/L (3.5-5.1); Sodium 137 mEq/L (136-145); eGFR For African Americans > 60 (> 60); eGFR For Non-African Americans > 60 (> 60)
[2020-03-19] MEDS: Vancomycin 1,500 MG/265 ML IV.SOLN IVPB SCH ×2 (08:50→17:49)
[2020-03-19] MEDS: Thiamine (B-1) 100 MG TABLET PO SCH (08:50)
[2020-03-19] MEDS: Folic Acid 1 MG TABLET PO SCH (08:50)
[2020-03-19] MEDS: Vitamin B Complex/Vit C/Vit E 1 EACH TABLET PO SCH (08:50)
[2020-03-19] MEDS: *HR* Heparin 5,000 UNIT/ML VIAL SQ SCH ×2 (08:51→17:54)
[2020-03-19] MEDS: Silvasorb 44.4 ML TUBE TP SCH (09:01)
[2020-03-20] MEDS: Piperacillin/Tazobactam 3.375 GM in 0.9 % Sodium Chloride Mini Bag 100 ML IVPB SCH (02:32)
[2020-03-20] MEDS: Vancomycin 1,250 MG/262.5 ML IV.SOLN IVPB SCH (02:37)
[2020-03-20 03:07] LABS: Hematocrit 37.7 % (37.5-50.1); Hemoglobin 12.5 g/dL (12.9-16.9); Mean Corpuscular HGB Conc 33.2 g/dL (31.6-35.5); Mean Corpuscular Hemoglobin 35.5 pg (28.0-33.3); Mean Corpuscular Volume 107.1 fL (83.0-100.0); Mean Platelet Volume 10.3 fL (9.4-12.4); Platelet Count 130 K/mcL (140-400); Red Blood Count 3.52 M/mcL (4.19-5.50); Red Cell Distribution Width 12.6 % (11.5-14.5); White Blood Count 4.2 K/mcL (4.3-11.1)
[2020-03-20] MEDS: Vancomycin 1,500 MG/265 ML IV.SOLN IVPB SCH (06:23)
[2020-03-20] MEDS: *HR* Heparin 5,000 UNIT/ML VIAL SQ SCH (06:26)
[2020-03-20 07:38] VITALS: BP 149/77
== END 2020-03-20 14:32 | disposition home or self-care (01) ==
LOC: 3BNU 15:32 → EMEROOARM 15:32 → 3BNU 19:30
PROVIDERS: ADMIT Internal Medicine; ATTEND Internal Medicine

== ENCOUNTER 2021-06-01 12:56 | Inpatient (IN) ==
[2021-06-01 13:58] LABS: Basophils % 0.3 %; Eosinophils # 0.1 K/mcL (0.0-0.6); Hematocrit 32.8 % (37.5-50.1); Hemoglobin 10.9 g/dL (12.9-16.9); Immature Granulocytes % 0.6 % (0-4); Lymphocytes # 0.8 K/mcL (0.6-4.6); Lymphocytes % 12.2 %; Mean Corpuscular HGB Conc 33.2 g/dL (31.6-35.5); Mean Corpuscular Hemoglobin 35.5 pg (28.0-33.3); Mean Corpuscular Volume 106.8 fL (83.0-100.0); Mean Platelet Volume 8.8 fL (9.4-12.4); Monocytes # 0.7 K/mcL (0.0-1.3); Monocytes % 10.7 %; Neutrophils # 5.1 K/mcL (1.6-8.9); Platelet Count 192 K/mcL (140-400); Red Blood Count 3.07 M/mcL (4.19-5.50); Red Cell Distribution Width 13.8 % (11.5-14.5); Segmented Neutrophils % 75.2 %; White Blood Count 6.8 K/mcL (4.3-11.1)
[2021-06-01 14:04] LABS: INR 1.6; Prothrombin Time 17.7 Seconds (9.4-12.1)
[2021-06-01 14:06] LABS: Activated Partial Thrombo Time 33.6 Seconds (26.0-36.0)
[2021-06-01 14:37] LABS: Alanine Aminotransferase 17 Units/L (7-52); Albumin 2.3 g/dL (3.5-5.7); Albumin/Globulin Ratio 0.5 (1.1-2.2); Alkaline Phosphatase 118 Units/L (34-104); Aspartate Amino Transferase 30 Units/L (13-39); BUN/Creatinine Ratio 18 (6-26); Bilirubin,Direct 2.2 mg/dL (0.0-0.2); Bilirubin,Indirect 3.1 mg/dL (0.0-1.0); Bilirubin,Total 5.3 mg/dL (0.3-1.0); Blood Urea Nitrogen 19 mg/dL (8-23); Calcium 8.1 mg/dL (8.6-10.3); Carbon Dioxide 25 mEq/L (23-29); Chloride 98 mEq/L (98-107); Globulin 5.1 g/dL (2.4-3.5); Glucose 127 mg/dL (70-105); Lipase 80 Units/L (11-82); Osmolality,Calculated 272 (280-300); Potassium 3.8 mEq/L (3.5-5.1); Sodium 129 mEq/L (136-145); Total Protein 7.4 g/dL (6.4-8.9); eGFR For African Americans > 60 (> 60); eGFR For Non-African Americans > 60 (> 60)
[2021-06-01 15:06] LABS: RBC,Peritoneal Fluid < 2000 RBC/mcL
[2021-06-01] MEDS ORDERED: Albumin 25% 25gram/100mL 25 GM/100 ML IV.SOLN IVPB ONE ×3 (15:12→16:57)
[2021-06-01] MEDS ORDERED: Lactulose Oral Soln 20 GM/30 ML UDC PO ONE (15:33)
[2021-06-01 16:23] LABS: Appearance of Peritoneal Fl CLEAR (Clear)
[2021-06-01 16:49] LABS: Basophils,Peritoneal Fluid 0 %; Eosinophils,Peritoneal Fluid 0 %
[2021-06-01] MEDS ORDERED: *HR* HYDROcodone/Acet 5/325 mg TABLET PO PRN (16:51)
[2021-06-01] MEDS ORDERED: 0.9 % Sodium Chloride 500 ML IVC ONE (17:38)
[2021-06-01] MEDS: Lactulose Oral Soln 20 GM/30 ML UDC PO SCH (19:56)
[2021-06-02 05:17] LABS: Hematocrit 29.4 % (37.5-50.1); Hemoglobin 9.7 g/dL (12.9-16.9); Mean Corpuscular Hemoglobin 35.1 pg (28.0-33.3); Mean Corpuscular Volume 106.5 fL (83.0-100.0); Platelet Count 144 K/mcL (140-400); Red Blood Count 2.76 M/mcL (4.19-5.50); Red Cell Distribution Width 13.6 % (11.5-14.5); White Blood Count 5.5 K/mcL (4.3-11.1)
[2021-06-02 05:38] LABS: Alanine Aminotransferase 10 Units/L (7-52); Albumin 2.2 g/dL (3.5-5.7); Albumin/Globulin Ratio 0.6 (1.1-2.2); Alkaline Phosphatase 62 Units/L (34-104); Aspartate Amino Transferase 21 Units/L (13-39); BUN/Creatinine Ratio 21 (6-26); Bilirubin,Total 4.5 mg/dL (0.3-1.0); Blood Urea Nitrogen 15 mg/dL (8-23); Calcium 7.6 mg/dL (8.6-10.3); Carbon Dioxide 28 mEq/L (23-29); Chloride 102 mEq/L (98-107); Globulin 3.4 g/dL (2.4-3.5); Glucose 80 mg/dL (70-105); Osmolality,Calculated 274 (280-300); Potassium 3.7 mEq/L (3.5-5.1); Sodium 132 mEq/L (136-145); Total Protein 5.6 g/dL (6.4-8.9); eGFR For African Americans > 60 (> 60); eGFR For Non-African Americans > 60 (> 60)
[2021-06-02] MEDS: Furosemide 40 MG TABLET PO SCH (10:41)
[2021-06-02] MEDS: Lactulose Oral Soln 20 GM/30 ML UDC PO SCH ×3 (10:42→19:36)
[2021-06-02] MEDS: Spironolactone 25 MG TABLET PO SCH (10:42)
[2021-06-02] MEDS: *HR* Heparin 5,000 UNIT/ML VIAL SQ SCH (17:01)
[2021-06-03] MEDS: *HR* Heparin 5,000 UNIT/ML VIAL SQ SCH (05:33)
[2021-06-03 06:47] LABS: Alanine Aminotransferase 12 Units/L (7-52); Albumin 2.2 g/dL (3.5-5.7); Albumin/Globulin Ratio 0.6 (1.1-2.2); Alkaline Phosphatase 91 Units/L (34-104); Aspartate Amino Transferase 24 Units/L (13-39); BUN/Creatinine Ratio 19 (6-26); Bilirubin,Total 3.4 mg/dL (0.3-1.0); Blood Urea Nitrogen 15 mg/dL (8-23); Calcium 7.7 mg/dL (8.6-10.3); Carbon Dioxide 27 mEq/L (23-29); Chloride 100 mEq/L (98-107); Globulin 3.5 g/dL (2.4-3.5); Glucose 121 mg/dL (70-105); Osmolality,Calculated 272 (280-300); Potassium 3.8 mEq/L (3.5-5.1); Sodium 130 mEq/L (136-145); Total Protein 5.7 g/dL (6.4-8.9); eGFR For African Americans > 60 (> 60); eGFR For Non-African Americans > 60 (> 60)
[2021-06-03 07:13] LABS: Basophils # 0.1 K/mcL (0.0-0.2); Basophils % 0.8 %; Eosinophils # 0.1 K/mcL (0.0-0.6); Eosinophils % 1.9 %; Hematocrit 30.3 % (37.5-50.1); Immature Granulocytes % 0.6 % (0-4); Lymphocytes # 1.9 K/mcL (0.6-4.6); Lymphocytes % 30.5 %; Mean Corpuscular Hemoglobin 35.5 pg (28.0-33.3); Mean Corpuscular Volume 107.4 fL (83.0-100.0); Mean Platelet Volume 9.3 fL (9.4-12.4); Monocytes # 1.1 K/mcL (0.0-1.3); Platelet Count 173 K/mcL (140-400); Red Blood Count 2.82 M/mcL (4.19-5.50); Red Cell Distribution Width 13.8 % (11.5-14.5); Segmented Neutrophils % 48.2 %; White Blood Count 6.3 K/mcL (4.3-11.1)
[2021-06-03] MEDS: Furosemide 40 MG TABLET PO SCH (07:42)
[2021-06-03] MEDS: Lactulose Oral Soln 20 GM/30 ML UDC PO SCH ×2 (07:42→17:12)
[2021-06-03] MEDS: Spironolactone 25 MG TABLET PO SCH (07:42)
[2021-06-03 11:10] VITALS: BP 114/61; PULSE 94; TEMP 98.9; O2SAT 95
== END 2021-06-03 16:35 | disposition home or self-care (01) | DRG 280 ==
LOC: EMEROOARM 12:56 → 3ANU 12:56 → 2NENU 17:40
PROVIDERS: ADMIT Internal Medicine; ATTEND Internal Medicine